=== PATIENT | male | born 1985 | race Caucasian/White ===

== ENCOUNTER 2018-05-30 11:34 | Emergency (ER) | payer OTHER ==
[~2018-05-30] VITALS: Ht 182.9 cm; Wt 90.0 kg
[~2018-05-30 11:34] MED LIST: ANAPROX DS550 MG OR; BACTRIM DS1 TAB PO; CARAFATE1 G1 PO; CEPHALEXIN500 MG OR; DOXYCYC MONO100 MG OR; DOXYCYCL HYC100 MG PO; FLEXERIL OR; FLONASE NASAL50 MCG; LISINOPRIL10 MG PO; NEXIUM40 M1 PO; NO HOME MEDS; PERCOCET 5/325M1 TAB PO; PREDNISONE10 MG PO; PREVACID30 M2 PO; PRILOSEC40 MG PO; TAM75CAP OR; ZOFRAN ODT8 MG PO; [UNRECOGNIZED DRUG - REMARK]
[2018-05-30] MEDS ORDERED: TORADOL PO (13:22)
[2018-05-30] MEDS ORDERED: FLEXERIL PO (13:22)
[2018-05-30 13:42] VITALS: BP 122/77
== END 2018-05-30 13:44 | disposition home or self-care (01) | DRG 563 ==
LOC: ED 11:34
DX: S39.012A Strain of muscle, fascia and tendon of lower back, initial encounter (principal); X50.3XXA Overexertion from repetitive movements, initial encounter
CPT/HCPCS: J2060; J3360